=== PATIENT | male | born 1980 | race Caucasian/White ===

== ENCOUNTER 2023-11-11 10:54 | Observation (INO) | payer BC, SELFPAY ==
[2023-11-11] VITALS (43 sets, daily range): BP systolic 176–218; BP diastolic 81–131; PULSE 81–106; TEMP 36.7–36.9; O2SAT 94–100; BMI 25.8; BMI 24.8
--- NOTE | 2023-11-11 11:05 | ECG_ITS ---
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
[2023-11-11 11:20] LABS: Basophils Absolute Auto 0.1 10^3/uL (0.0-0.1); Basophils Percent Auto 0.4 % (0.2-2.0); Eosinophils Absolute Auto 0.1 10^3/uL (0.0-0.7); Eosinophils Percent Auto 0.8 % (0.9-7.0); Hematocrit 45.5 % (42.0-54.0); Hemoglobin 15.6 g/dL (14.0-18.0); Immature Granulocytes Abs Auto 0.08 10^3/uL (0.00-0.03); Immature Granulocytes Pct Auto 0.7 % (0.0-0.5); Lymphocytes Absolute Auto 2.6 10^3/uL (1.2-3.8); Lymphocytes Percent Auto 21.9 % (20.5-60.0); Mean Corpuscular HGB Conc 34.3 g/dL (29.9-35.2); Mean Corpuscular Hemoglobin 34.2 pg (25.9-34.0); Mean Corpuscular Volume 99.8 fL (80.0-94.0); Mean Platelet Volume 9.8 fL (9.5-13.5); Monocytes Percent Auto 8.1 % (1.7-12.0); Neutrophils Absolute Auto 8.2 10^3/uL (1.4-6.5); Neutrophils Percent Auto 68.1 % (43.0-75.0); Platelet Count 270 10^3/uL (150-450); Red Blood Count 4.56 10^6/uL (4.70-6.10)
[2023-11-11 11:41] LABS: Anion Gap 12.5; BUN Creatinine Ratio 10.9; Calcium 8.7 mg/dL (8.5-10.1); Carbon Dioxide 27.3 mmol/L (21.0-32.0); Chloride 100 mmol/L (98-107); Estimated GFR (African America >60 (>=60); Estimated GFR (Non-African Ame >60 (>=60); Glucose 100 mg/dL (74-106); Potassium 3.8 mmol/L (3.5-5.1); Sodium 136 mmol/L (136-145); Troponin I High Sensitivity 10.1 pg/mL (4.0-76.1)
--- NOTE | 2023-11-11 11:41 | ECG_ITS ---
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
[2023-11-11] MEDS: LABETALOL HCL 20 MG/4 ML SYRINGE 10 MG IVP ×2 (12:04→13:07)
[2023-11-11 12:37] LABS: Bilirubin Urine NEGATIVE (NEGATIVE); Blood Urine NEGATIVE (NEGATIVE); Clarity Urine CLEAR (CLEAR); Color Urine LT. YELLOW (YELLOW); Glucose Urine UA NEGATIVE (NEGATIVE); Ketones Urine NEGATIVE (NEGATIVE); Leukocyte Esterase Urine SMALL (NEGATIVE); Nitrite Urine NEGATIVE (NEGATIVE); Protein Urine NEGATIVE (NEG/TRACE); pH Urine 7.5 (5.0-9.0)
[2023-11-11 12:48] LABS: Bacteria Urine TRACE #/HPF (NONE SEEN); Cast Seen? NONE SEEN #/LPF (NONE SEEN); Crystals Seen? None Seen #/HPF (None Seen); Mucus Urine NONE SEEN (NONE SEEN); RBC Urine 0-2 #/HPF (0-2); Squamous Epithelial Cell Urine FEW #/LPF (NONE/RARE)
[2023-11-11 12:49] LABS: Urine Culture Indicated YES
[2023-11-11 13:37] LABS: Troponin I High Sensitivity 12.8 pg/mL (4.0-76.1)
--- NOTE | 2023-11-11 15:06 | ED_ITS ---
HPI HPI - General Adult General Chief complaint: Recheck/Abnormal Lab/Rx Stated complaint: HIGH BLOOD PRESSURE, WEAK, FAINT Time Seen by Provider: 11/11/23 11:04 Source: patient Mode of arrival: walk-in Limitations: no limitations History of Present Illness HPI narrative: 42-year-old male to the emergency department chief complaint of elevated blood pressure. Patient reports that he was at work today at the [employer] and experienced an episode of diaphoresis, dizziness, feeling generally unwell. He had to sit down. He looked unwell and a nurse there took his blood pressure and found to be in the 220s/120s. He reports that he had mild hypertension in the past that was treated with exercise and diet. Has never been on medications. He did not have any chest pain but did have some mild shortness of breath. He did not have any vision changes, numbness, weakness, tingling. Related Data Home Medications ?Medication ?Instructions ?Recorded ?Confirmed No Known Home Medications 11/11/23 11/11/23 Allergies Allergy/AdvReac Type Severity Reaction Status Date / Time No Known Drug Allergies Allergy Verified 11/11/23 10:59 Opioid HPI Opioid Management Most Recent Opioid Data: No Data to Display Review of Systems ROS Status of ROS 10 or more systems reviewed and unremark able except as noted in history and below Exam Narrative Exam Narrative: VITALS: I have reviewed the triage vital signs. GENERAL: Well developed, well appearing adult in no acute distress. NEURO: Alert and oriented. Moves all extremities. Face is symmetric and expressive. EYES: PERRL. No scleral icterus or conjunctival injection. No discharge. HENT: Normocephalic, atraumatic. Hearing is grossly intact. Nares grossly patent and without discharge. Mucous membranes moist. NECK: No JVD. Patient moves neck without restriction. CARDIO: Rhythm regular. Normal rate. No murmur, rub, or gallop. Pulses equal bilaterally in the upper and lower extremity. No lower extremity edema. PULM: Lungs clear to auscultation in all workman. No wheezes, rales, or rhonchi. No conversational dyspnea. No splinting, stridor, or accessory muscle use. GI/: Abdomen is soft and non-tender. Normoactive bowel sounds. EXTREMITIES: Symmetric muscle bulk. No joint swelling. No clubbing, cyanosis, or deformity. SKIN: Warm and dry. Normal turgor. No rash or lesions appreciated. PSYCH: Mood, affect, and interaction is appropriate to the setting. Constitutional Vital Signs, click to edit/add: Last Vital Signs Temp 98.1 F 11/11/23 11:00 Pulse 87 11/11/23 14:40 Resp 12 11/11/23 14:40 BP 176/81 H 11/11/23 14:30 Pulse Ox 100 11/11/23 11:01 Course Vital Signs Vital signs: Vital Signs Temperature 98.1 F 11/11/23 11:00 Pulse Rate 98 H 11/11/23 11:00 Respiratory Rate 18 11/11/23 11:00 Blood Pressure 202/119 H 11/11/23 11:00 Pulse Oximetry 100 11/11/23 11:00 Temperature 98.1 F 11/11/23 11:00 Pulse Rate 87 11/11/23 14:40 Respiratory Rate 12 11/11/23 14:40 Blood Pressure 176/81 H 11/11/23 14:30 Pulse Oximetry 100 11/11/23 11:01 Medical Decision Making [facility] Narrative Medical decision making narrative: 42-year-old male to the emergency department with chief complaint of episode of near syncope and hypertension. Severe hypertension, otherwise stable vitals. The patient is afebrile. Cardiac workup is initiated. EKG #1: Normal sinus rhythm at a rate of 97. Nonspecific ST changes including depression in the inferior lateral leads. No STEMI. Normal QTc. EKG #2: Normal sinus rhythm at a rate of 97. Nonspecific ST changes. No dynamic changes. No STEMI. Normal QTc. CBC and chemistry without major abnormality. His troponin is within normal limits. He remains severely hypertensive. He was given a IV dose of labetalol. He was observed for 20 minutes without major response. I did a dose of IV labetalol was given. His blood pressure did decrease to our initial target of 190s. Given the EKG changes, symptoms as above, persistent hypertension will admit the patient to the hospital for hypertensive emergency. Case discussed with hospitalist who agrees with this plan Medical Records Medical records reviewed: Yes I reviewed the patient's medical records Lab Data Lab results reviewed: Yes I reviewed the patient's lab results Labs: Lab Results 11/11/23 11/11/23 11/11/23 Range/Units 11:05 12:10 13:07 WBC 12.0 H (4.0-11.0) 10^3/uL RBC 4.56 L (4.70-6.10) 10^6/uL Hgb 15.6 (14.0-18.0) g/dL Hct 45.5 (42.0-54.0) % MCV 99.8 H (80.0-94.0) fL MCH 34.2 H (25.9-34.0) pg MCHC 34.3 (29.9-35.2) g/dL RDW 13.0 (11.0-15.0) % Plt Count 270 (150-450) 10^3/uL MPV 9.8 (9.5-13.5) fL Neut % (Auto) 68.1 (43.0-75.0) % Lymph % (Auto) 21.9 (20.5-60.0) % [place] % (Auto) 8.1 (1.7-12.0) % Eos % (Auto) 0.8 L (0.9-7.0) % Baso % (Auto) 0.4 (0.2-2.0) % Neut # (Auto) 8.2 H (1.4-6.5) 10^3/uL Lymph # (Auto) 2.6 (1.2-3.8) 10^3/uL [place] # (Auto) 1.0 H (0.3-0.8) 10^3/uL Eos # (Auto) 0.1 (0.0-0.7) 10^3/uL Baso # (Auto) 0.1 (0.0-0.1) 10^3/uL Abs Immat Gran (auto) 0.08 H (0.00-0.03) 10^3/uL Imm/Tot Granulo (auto) 0.7 H (0.0-0.5) % Sodium 136 (136-145) mmol/L Potassium 3.8 (3.5-5.1) mmol/L Chloride 100 (98-107) mmol/L Carbon Dioxide 27.3 (21.0-32.0) mmol/L Anion Gap 12.5 BUN 7.0 (7.0-18.0) mg/dL Creatinine 0.64 L (0.70-1.30) mg/dL Est GFR ( Amer) >60 (>=60) Est GFR (Non-Af Amer) >60 (>=60) BUN/Creatinine Ratio 10.9 Glucose 100 (74-106) mg/dL Calcium 8.7 (8.5-10.1) mg/dL Troponin I High Sens 10.1 12.8 (4.0-76.1) pg/mL Urine Color Lt. yellow (YELLOW) Urine Clarity Clear (CLEAR) Urine pH 7.5 (5.0-9.0) Ur Specific [place] 1.010 (1.005-1.025) Urine Protein Negative (NEG/TRACE) mg/dL Urine Glucose (UA) Negative (NEGATIVE) mg/dL Urine Ketones Negative (NEGATIVE) mg/dL Urine Occult Blood Negative (NEGATIVE) Urine Nitrite Negative (NEGATIVE) Urine Bilirubin Negative (NEGATIVE) Urine Urobilinogen 1.0 (0.2-1.0) EU/dL Ur Leukocyte Esterase Small A (NEGATIVE) Urine RBC 0-2 (0-2) #/HPF Urine WBC 10-20 A (NONE SEEN) #/HPF Ur Squamous Epith Cells Few A (NONE/RARE) #/LPF Urine Crystals None seen (None Seen) #/HPF Urine Bacteria Trace A (NONE SEEN) #/HPF Urine Casts None seen (NONE SEEN) #/LPF Urine Mucus None seen (NONE SEEN) Ur Culture Indicated? Yes ECG Data Attestation: I personally reviewed and interpreted this ECG as follows: (See MDM for interpretation) Critical Care Time Critical Care Time Critical Care Time: Yes Total Critical Care Time: 32 Attestation: Critical Care Procedure Note Authorized and Performed by: Emerson Peña DO Total critical care time: 32 min Due to a high probability of clinically significant, life threatening deterioration, the patient required my highest level of preparedness to in the [facility] emergently and I personally spent this critical care time directly and personally managing the patient. This critical care time included obtaining a history; examining the patient; pulse oximetry; ordering and review of studies; arranging urgent treatment with development of a management plan; evaluation of patient's response to treatment; frequent reassessment; and, discussions with other providers. This critical care time was performed to assess and manage the high probability of imminent, life-threatening deterioration that could result in multi-organ failure. It was exclusive of separately billable procedures and treating other patients and teaching time. Please see MDM section and the rest of the note for further information on patient assessment and treatment. Discharge Plan Discharge Chief Complaint: Recheck/Abnormal Lab/Rx Clinical Impression: Hypertensive emergency Patient Disposition: Admitted as Observation Time of Disposition Decision: 15:12 Condition: Good Prescriptions / Home Meds: No Action No Known Home Medications Print Language: Ghanaian Referrals: Physician,Non-Staff, MD [Primary Care Provider] - 1 week
--- NOTE | 2023-11-11 15:31 | CT_ITS ---
[address] [address] Patient Name: VERONICA NEWMAN MRN: [id number] date: 1980 Sex: M Assigned Patient Location: [place] Current Patient Location: [place] Accession/Order Number: [id number] Exam Date: 11/11/2023 15:55 Report Date: 11/11/2023 16:28 At the request of: SHAIKH PEACE Procedure: CT head/brain wo con CT HEAD WITHOUT CONTRAST. INDICATION: Headache. COMPARISON: None available for comparison TECHNIQUE: Axial CT head images from the skull base to the vertex without IV contrast were acquired. Coronal and sagittal reformats were also obtained. FINDINGS: EXTRA-AXIAL SPACE: Age-appropriate ventricles. No acute extra-axial collection. No extra-axial mass. No midline shift. CEREBRUM: No focal abnormality. No CT evidence of acute large territorial cortical infarct, hemorrhage or mass effect. CEREBELLUM: No focal abnormality. No CT evidence of acute infarct, hemorrhage or mass effect. BRAINSTEM: No focal abnormality. No CT evidence of acute infarct, hemorrhage or mass effect. EXTRACRANIAL STRUCTURES. The paranasal sinuses are clear. Mastoid air cells are clear. Orbits are unremarkable. No discrete pituitary mass. Intact calvarium. CT/CT head/brain wo con IMPRESSION: No acute intracranial abnormality. Electronically authenticated by: ISA KHAN Date: 11/11/2023 16:28
--- NOTE | 2023-11-11 15:31 | PM.HP ---
HPI H&P: HPI History of Present Illness Chief complaint: HIGH BLOOD PRESSURE, WEAK, HYPERTENSIVE EMERGENCY Narrative: 42-year-old male with no significant past medical history was at work when he started to experience lightheadedness, bitemporal headache, generalized weakness was told by his coworkers that he did not look right. He also reports mild shortness of breath and diaphoresis along with his other symptoms. 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 Patient was advised to go to ER for further evaluation. He was driven by his son who was also present bedside. Upon arrival, patient's blood pressure was as high as 200/120 for which he was given IV labetalol with temporary reduction in his blood pressure. At the time of my evaluation, he had no active complaints to offer and was asymptomatic and denied headache, nausea, vomiting, visual changes, shortness of breath, chest pain, heart palpitations. Patient has not seen a physician for over 3 to 4 years. He was previously told that he has borderline high blood pressure. He has never been prescribed anything for high blood pressure. He admits to high levels of stress at work lately. Of note, he was also noted to have ST?T wave changes on EKG denies any chest pain, shortness of breath, palpitation and his initial cardiac enzymes were negative. Patient will need to be admitted for observation for hypertensive emergency for close hemodynamic monitoring while he is being treated for elevated blood pressure. Opioid HPI Opioid Management Most Recent Pain and Opioid Data: Last ORT Total Score 8 11/11/23 15:36 Last ORT Risk Category High Risk 11/11/23 15:36 Review of Systems ROS Status of ROS 10 or more systems reviewed and unremarkable except as noted in history and below [facility] Family History Mother Family history of cancer Family history of hypertension Father Family history of hypertension Grandfather Family history of myocardial infarction Social History (Updated 11/11/23 @ 15:37 by Shaikh Charmaine MD) Within the past year, how often did you have a drink containing alcohol: 2-3 times a week Within the past year, how many standard drinks containing alcohol did you have on a typical day: 3 or 4 Within the past year, how often did you have six or more drinks on one occasion: monthly Total score: 4 Score interpretation: A score of 4 or more indicates drinking is likely to affect patient's safety. 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 Little interest or pleasure in doing things: not at all Feeling down, depressed, or hopeless: not at all Feel stressed/tense/nervous/anxious/difficulty sleeping: not at all Do you think of yourself as: straight/heterosexual Gender Identity: male Meds Home Medications and Allergies Home Medications ?Medication ?Instructions ?Recorded ?Confirmed ?Type No Known Home Medications 11/11/23 11/11/23 History Allergies Allergy/AdvReac Type Severity Reaction Status Date / Time No Known Drug Allergies Allergy Verified 11/11/23 10:59 Exam Constitutional Vital Signs, click to edit/add: Last Vital Signs Temp 98.1 F 11/11/23 11:00 Pulse 81 11/11/23 15:10 Resp 15 11/11/23 15:10 BP 176/81 H 11/11/23 14:30 Pulse Ox 100 11/11/23 11:01 Documenting provider has reviewed patient's vital signs: yes Common normals: no apparent distress and oriented x3 General appearance: cooperative HENKS Common normals: normocephalic and head/scalp atraumatic Head and scalp: normocephalic and atraumatic Eye Common normals: conjunctivae normal and no scleral icterus Conjunctiva: conjunctiva(e) normal Respiratory Common normals: normal respiratory effort and clear to auscultation bilaterally Effort & inspection: able to speak in complete sentences Auscultation: clear to auscultation bilaterally Cardio Common normals: regular rate, S1 normal heart sound and S2 normal heart sound Rate: regular rate Heart sounds: S1 normal and S2 normal GI Common normals: Normal to inspection, nondistended, normoactive bowel sounds present, soft to palpation, non-tender and no hepatosplenomegaly Palpation: soft and no hepatosplenomegaly Extremity Common normals: no clubbing, cyanosis or edema Neuro Common normals: oriented x3, moves all extremities and no focal motor deficits Psych Common normals: mental status grossly normal, denies hallucinations, denies homicidal ideation and denies suicidal ideation Results Labs Labs: Short CBC 11/11/23 Range/Units 11:05 WBC 12.0 H (4.0-11.0) 10^3/uL Hgb 15.6 (14.0-18.0) g/dL Hct 45.5 (42.0-54.0) % Plt Count 270 (150-450) 10^3/uL BMP 11/11/23 11:05 Sodium 136 Potassium 3.8 Chloride 100 Carbon Dioxide 27.3 BUN 7.0 Creatinine 0.64 L Glucose 100 Calcium 8.7 Urine 11/11/23 Range/Units 12:10 Urine Color Lt. yellow (YELLOW) Urine Clarity Clear (CLEAR) Urine pH 7.5 (5.0-9.0) Ur Specific [place] 1.010 (1.005-1.025) Urine Protein Negative (NEG/TRACE) mg/dL Urine Glucose (UA) Negative (NEGATIVE) mg/dL Assessment and Plan Assessment and Plan (1) Hypertensive emergency: Assessment and Plan: Patient presents with hypertensive emergency with blood pressure as high as 210/120. Required IV labetalol with temporary improvement in his blood pressure. I will start the patient on oral Norvasc 10 mg and hydrochlorothiazide 25 mg once daily. I will also order IV hydralazine as needed. Target blood pressure is 160/100. He will need gradual lowering of his blood pressure and close hemodynamic monitoring.. CT head ordered to rule out acute intracranial pathology as he was complaining of headache initially when his symptoms started. (2) Abnormal EKG: Assessment and Plan: ST-T wave changes on EKG likely because of uncontrolled hypertension. Will repeat EKG in the morning once his blood pressure is improved. Trend troponins. Will need workup for ischemic heart disease as outpatient (3) Abnormal finding on urinalysis: Assessment and Plan: Abnormal UA. No urinary symptoms. Treat empirically with IV Rocephin (4) Leukocytosis: Assessment and Plan: Likely reactive and/or secondary to UTI. On IV Rocephin. Monitor for now. Qualifiers: Leukocytosis type: unspecified Qualified Code(s): D72.829 - Elevated white blood cell count, unspecified
[2023-11-11] MEDS: ENOXAPARIN SODIUM 40 MG/0.4 ML SYRINGE SUBQ (16:08)
[2023-11-11] MEDS: HYDROCHLOROTHIAZIDE 25 MG TABLET PO (16:08)
[2023-11-11] MEDS: ASPIRIN 81 MG TAB.CHEW PO (16:08)
[2023-11-11] MEDS: AMLODIPINE BESYLATE 5 MG TABLET 10 MG PO (16:09)
[2023-11-11] MEDS: CEFTRIAXONE 1,000 MG in 0.9 % SODIUM CHLORIDE 50 ML 100 MG IV (16:53)
[2023-11-11] MEDS: HYDRALAZINE HCL 20 MG/ML VIAL 10 MG IVP (17:40)
[2023-11-11 19:27] LABS: Troponin I High Sensitivity 13.5 pg/mL (4.0-76.1)
[2023-11-11] MEDS: OXYCODONE HCL 5 MG TABLET PO (19:37)
[2023-11-11] MEDS: ALPRAZOLAM 0.5 MG TABLET PO (19:38)
[2023-11-11] MEDS: NICOTINE 21 MG PATCH.TD24 TD (20:47)
[2023-11-12] VITALS (13 sets, daily range): BP systolic 171–189; BP diastolic 93–121; PULSE 81–108; TEMP 36.4–36.6; O2SAT 97–98
[2023-11-12] MEDS: LORAZEPAM 1 MG TABLET PO ×3 (00:26→06:23)
[2023-11-12] MEDS: HYDRALAZINE HCL 20 MG/ML VIAL 10 MG IVP ×2 (00:27→06:23)
[2023-11-12] MEDS: OXYCODONE HCL 5 MG TABLET PO (04:10)
--- NOTE | 2023-11-12 06:00 | ECG_ITS ---
[facility] Test Date: 2023-11-12 Pat Name: VERONICA NEWMAN Department: Room: 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
[2023-11-12 06:45] LABS: Basophils Absolute Auto 0.1 10^3/uL (0.0-0.1); Basophils Percent Auto 0.5 % (0.2-2.0); Eosinophils Absolute Auto 0.3 10^3/uL (0.0-0.7); Eosinophils Percent Auto 2.2 % (0.9-7.0); Hematocrit 47.7 % (42.0-54.0); Hemoglobin 16.2 g/dL (14.0-18.0); Immature Granulocytes Abs Auto 0.06 10^3/uL (0.00-0.03); Immature Granulocytes Pct Auto 0.5 % (0.0-0.5); Lymphocytes Absolute Auto 2.8 10^3/uL (1.2-3.8); Lymphocytes Percent Auto 21.2 % (20.5-60.0); Mean Corpuscular Volume 100.2 fL (80.0-94.0); Mean Platelet Volume 10.2 fL (9.5-13.5); Monocytes Absolute Auto 1.2 10^3/uL (0.3-0.8); Monocytes Percent Auto 9.3 % (1.7-12.0); Neutrophils Absolute Auto 8.8 10^3/uL (1.4-6.5); Neutrophils Percent Auto 66.3 % (43.0-75.0); Platelet Count 259 10^3/uL (150-450); Red Blood Count 4.76 10^6/uL (4.70-6.10); Red Cell Distribution Width 12.9 % (11.0-15.0); White Blood Count 13.2 10^3/uL (4.0-11.0)
[2023-11-12 06:48] LABS: Cholesterol 186 mg/dL (<=200); HDL Cholesterol 46 mg/dL (40-60); LDL Cholesterol Calculated 119.6 mg/dL; Triglycerides 102 mg/dL (<=150); VLDL CHOLESTEROL 20.4 mg/dL
[2023-11-12 06:51] LABS: Alanine Aminotransferase 30 U/L (16-63); Albumin Globulin Ratio 1.2; Albumin Level 3.3 g/dL (3.4-5.0); Alkaline Phosphatase 78 U/L (46-116); Anion Gap 15.7; Aspartate Amino Transferase 16 U/L (15-37); BUN Creatinine Ratio 11.1; Bilirubin Total 0.7 mg/dL (0.2-1.0); Calcium 8.9 mg/dL (8.5-10.1); Carbon Dioxide 25.6 mmol/L (21.0-32.0); Chloride 101 mmol/L (98-107); Estimated GFR (African America >60 (>=60); Estimated GFR (Non-African Ame >60 (>=60); Globulin 2.8 g/dL; Glucose 107 mg/dL (74-106); Potassium 3.3 mmol/L (3.5-5.1); Sodium 139 mmol/L (136-145); Total Protein 6.1 g/dL (6.4-8.2)
[2023-11-12 07:36] LABS: Estimated Average Glucose 97 mg/dL
[2023-11-12] MEDS: ASPIRIN 81 MG TAB.CHEW PO (08:16)
[2023-11-12] MEDS: HYDROCHLOROTHIAZIDE 25 MG TABLET PO (08:17)
[2023-11-12] MEDS: POTASSIUM CHLORIDE 10 MEQ ER TABLET 40 MEQ PO (08:17)
[2023-11-12] MEDS: LOSARTAN POTASSIUM 50 MG TABLET 100 MG PO (08:17)
[2023-11-12] MEDS: AMLODIPINE BESYLATE 5 MG TABLET 10 MG PO (08:17)
--- NOTE | 2023-11-12 11:19 | P.DS_ITS ---
DS: Providers Provider Date of admission: 11/11/23 15:26 Primary care physician: Non-Staff Physician, Admitting clinician: Shaikh Charmaine Attending physician on admission: Shaikh Charmaine Attending physician on discharge: Shaikh Charmaine Discharging clinician: Shaikh Charmaine Anticipated date of discharge: 11/12/23 DS: Diagnosis Discharge Diagnosis (1) Hypertensive emergency: Assessment and plan: Blood pressure is better with addition of oral antihypertensives. It is still above goal and will require close monitoring as outpatient. Patient will be discharged on oral Norvasc, losartan and hydrochlorothiazide. He will need outpatient BMP in 1 week and follow-up with PCP with home blood pressure log so that his blood pressure medications can be adjusted accordingly (2) Abnormal EKG: Assessment and plan: Nonspecific ST-T wave changes on initial EKG when he presented with hypertensive emergency. More or less resolved on repeat EKG in the morning. He denies chest pain, shortness of breath. He has negative cardiac enzymes. Will defer workup for underlying coronary artery disease to his PCP (3) Abnormal finding on urinalysis: Assessment and plan: No urinary symptoms but has abnormal UA. Will treat for UTI. Discharged on orals Ceftin (4) Leukocytosis: Assessment and plan: Unchanged. Likely reactive. Will discharge on oral Ceftin Qualifiers: Leukocytosis type: unspecified Qualified Code(s): D72.829 - Elevated white blood cell count, unspecified DS: Summary Hospital Course Hospital Course: 42-year-old male presented to ER with uncontrolled hypertension. His systolic blood pressure on arrival was over 200. He also complained of shortness of breath, headache and diaphoresis. Patient was admitted for hypertensive emergency. He was treated with IV hydralazine as needed and started on oral medications overnight. Initially he was started on oral Norvasc and hydrochlorothiazide. I added losartan as his blood pressure was still above goal. He is asymptomatic now and has no active complaints to offer. He had no acute intracranial pathology on CT head. He had nonspecific ST-T wave changes on EKG on arrival. Those changes have improved. He also had negative cardiac enzymes. While patient's blood pressure is still above goal but it is significantly better and reasonably controlled. He will need outpatient follow- up with PCP in 1 week. He was instructed to check his blood pressure daily at h ome and maintain home blood pressure log so that his PCP can adjust his medications as outpatient. While he did not have any urinary symptoms, his UA was consistent with UTI for which she was treated with Rocephin. I will discharge him on oral antibiotic for empirical treatment for UTI. Status at Discharge Functional status at discharge: independent ambulation Overall status at discharge: patient is back to baseline Time Spent with Patient Time attestation: Total time spent providing and/or coordinating discharge services: Time spent: greater than 30 minutes Exam Constitutional Vital Signs, click to edit/add: Last Vital Signs Temp 97.8 F 11/12/23 07:58 Pulse 104 H 11/12/23 09:50 Resp 18 11/12/23 07:58 BP 171/93 H 11/12/23 09:25 Pulse Ox 97 11/12/23 07:58 O2 Del Method Room Air 11/12/23 07:58 Documenting provider has reviewed patient's vital signs: yes Common normals: no apparent distress and oriented x3 General appearance: cooperative Eye Common normals: conjunctivae normal and no scleral icterus Conjunctiva: conjunctiva(e) normal Respiratory Common normals: normal respiratory effort and clear to auscultation bilaterally Effort & inspection: able to speak in complete sentences Auscultation: clear to auscultation bilaterally Cardio Common normals: regular rate, S1 normal heart sound and S2 normal heart sound Rate: regular rate Heart sounds: S1 normal and S2 normal GI Common normals: Normal to inspection, nondistended, normoactive bowel sounds present, soft to palpation, non-tender and no hepatosplenomegaly Palpation: soft and no hepatosplenomegaly Extremity Common normals: no clubbing, cyanosis or edema Neuro Common normals: oriented x3, moves all extremities and no focal motor deficits Psych Common normals: mental status grossly normal, denies hallucinations, denies homicidal ideation and denies suicidal ideation DS: Data Data Completed and Pending Labs on day of discharge: Labs from last 24 hours 11/12/23 11/11/23 11/11/23 05:41 18:57 16:06 WBC 13.2 H RBC 4.76 Hgb 16.2 Hct 47.7 MCV 100.2 H MCH 34.0 MCHC 34.0 RDW 12.9 Plt Count 259 MPV 10.2 Neut % (Auto) 66.3 Lymph % (Auto) 21.2 Oliver % (Auto) 9.3 Eos % (Auto) 2.2 Baso % (Auto) 0.5 Neut # (Auto) 8.8 H Lymph # (Auto) 2.8 Oliver # (Auto) 1.2 H Eos # (Auto) 0.3 Baso # (Auto) 0.1 Abs Immat Gran (auto) 0.06 H Imm/Tot Granulo (auto) 0.5 Sodium 139 Potassium 3.3 L Chloride 101 Carbon Dioxide 25.6 Anion Gap 15.7 BUN 7.0 Creatinine 0.63 L Est GFR ( Amer) >60 Est GFR (Non-Af Amer) >60 BUN/Creatinine Ratio 11.1 Glucose 107 H Estimat Average Glucose 97 Hemoglobin A1c 5.0 Calcium 8.9 Total Bilirubin 0.7 AST 16 ALT 30 Alkaline Phosphatase 78 Troponin I High Sens 13.5 13.0 Total Protein 6.1 L Albumin 3.3 L Globulin 2.8 Albumin/Globulin Ratio 1.2 Triglycerides 102 Cholesterol 186 LDL Cholesterol, Calc 119.6 VLDL Cholesterol 20.4 HDL Cholesterol 46 Cholesterol/HDL Ratio 4.0 Urine Color Urine Clarity Urine pH Ur Specific Wheelwright Urine Protein Urine Glucose (UA) Urine Ketones Urine Occult Blood Urine Nitrite Urine Bilirubin Urine Urobilinogen Ur Leukocyte Esterase Urine RBC Urine WBC Ur Squamous Epith Cells Urine Crystals Urine Bacteria Urine Casts Urine Mucus Ur Culture Indicated? 11/11/23 11/11/23 11/11/23 13:07 12:10 11:05 WBC 12.0 H RBC 4.56 L Hgb 15.6 Hct 45.5 MCV 99.8 H MCH 34.2 H MCHC 34.3 RDW 13.0 Plt Count 270 MPV 9.8 Neut % (Auto) 68.1 Lymph % (Auto) 21.9 Oliver % (Auto) 8.1 Eos % (Auto) 0.8 L Baso % (Auto) 0.4 Neut # (Auto) 8.2 H Lymph # (Auto) 2.6 Oliver # (Auto) 1.0 H Eos # (Auto) 0.1 Baso # (Auto) 0.1 Abs Immat Gran (auto) 0.08 H Imm/Tot Granulo (auto) 0.7 H Sodium 136 Potassium 3.8 Chloride 100 Carbon Dioxide 27.3 Anion Gap 12.5 BUN 7.0 Creatinine 0.64 L Est GFR ( Amer) >60 Est GFR (Non-Af Amer) >60 BUN/Creatinine Ratio 10.9 Glucose 100 Estimat Average Glucose Hemoglobin A1c Calcium 8.7 Total Bilirubin AST ALT Alkaline Phosphatase Troponin I High Sens 12.8 10.1 Total Protein Albumin Globulin Albumin/Globulin Ratio Triglycerides Cholesterol LDL Cholesterol, Calc VLDL Cholesterol HDL Cholesterol Cholesterol/HDL Ratio Urine Color Lt. yellow Urine Clarity Clear Urine pH 7.5 Ur Specific Wheelwright 1.010 Urine Protein Negative Urine Glucose (UA) Negative Urine Ketones Negative Urine Occult Blood Negative Urine Nitrite Negative Urine Bilirubin Negative Urine Urobilinogen 1.0 Ur Leukocyte Esterase Small A Urine RBC 0-2 Urine WBC 10-20 A Ur Squamous Epith Cells Few A Urine Crystals None seen Urine Bacteria Trace A Urine Casts None seen Urine Mucus None seen Ur Culture Indicated? Yes Discharge Plan Discharge Disposition: Home, Self-Care Condition: Good Discharge Medications: New amlodipine [Norvasc] 10 mg tablet 10 mg PO DAILY Qty: 30 0RF losartan-hydrochlorothiazide 100-25 mg tablet 1 tab PO DAILY Qty: 30 0RF cefuroxime axetil 500 mg tablet 500 mg PO BID 7 Days Qty: 14 0RF Activity: increase activity as tolerated Diet: advance to your usual diet Print Language: Faroese Forms: Portal Instructions Follow Up Appointments: @ 4pm with Jennifer Adams NP [address] [facility] [phone]
--- NOTE | 2023-11-12 11:37 | CM.NOTE ---
Rounds made with Dr. Montano, discussed with pt discharge planning. Pt will f/u with Conchita Dia. Dr. Montano ordered repeat lab work to be done prior to seeing Conchita Dia for f/u. Pt was given outpatient lab requisition for f/u blood work. Pt verbalizes understanding. Pt states he has BP cuff at home and will be able to check his BP twice daily and record for f/u appt.
--- NOTE | 2023-11-13 15:23 | CM.DCFOLLOWU ---
Person spoke with: patient How are you feeling? better, still not great, but better How is your pain? none Did you understand your discharge instructions? yes Do you have any questions about your discharge instructions? no Were you given any prescriptions at discharge? yes Were you able to get your prescriptions filled? yes Do you understand how to take your medications as ordered? yes Do you have any questions about your follow up appointment and do you plan to keep your follow up appointment? no questions, reviewed follow up apt. Is there anything else that you would like to discuss? no Questions/Comments/Concerns/Other: none
== END 2023-11-12 12:16 | disposition home or self-care (01) ==
LOC: ER 15:12 → MS 15:29
PROVIDERS: Admitting Provider Internal Medicine; Emergency Provider Student in an Organized Health Care Education/Training Program; Visit Provider Internal Medicine
DX: I16.1 Hypertensive emergency (principal); R94.31 Abnormal electrocardiogram [ECG] [EKG]; N39.0 Urinary tract infection, site not specified; D72.829 Elevated white blood cell count, unspecified
CPT/HCPCS: 36415; 70450; 80048; 80053; 80061; 81001; 83036; 84484; 85025; 87086; 93005; 94761; 96365; 96372; 96375; 96376; 99285; G0378; J0360; J0696; J1290; J1650

== ENCOUNTER 2023-11-23 08:07 | Outpatient (OUT) | payer BC, SELFPAY ==
[2023-11-23 08:36] LABS: Basophils Absolute Auto 0.1 10^3/uL (0.0-0.1); Basophils Percent Auto 0.6 % (0.2-2.0); Eosinophils Absolute Auto 0.3 10^3/uL (0.0-0.7); Eosinophils Percent Auto 2.2 % (0.9-7.0); Hematocrit 45.9 % (42.0-54.0); Hemoglobin 16.1 g/dL (14.0-18.0); Immature Granulocytes Abs Auto 0.09 10^3/uL (0.00-0.03); Immature Granulocytes Pct Auto 0.7 % (0.0-0.5); Lymphocytes Absolute Auto 2.9 10^3/uL (1.2-3.8); Lymphocytes Percent Auto 22.6 % (20.5-60.0); Mean Corpuscular HGB Conc 35.1 g/dL (29.9-35.2); Mean Corpuscular Hemoglobin 34.4 pg (25.9-34.0); Mean Corpuscular Volume 98.1 fL (80.0-94.0); Mean Platelet Volume 9.8 fL (9.5-13.5); Monocytes Absolute Auto 1.2 10^3/uL (0.3-0.8); Monocytes Percent Auto 9.2 % (1.7-12.0); Neutrophils Absolute Auto 8.4 10^3/uL (1.4-6.5); Neutrophils Percent Auto 64.7 % (43.0-75.0); Platelet Count 334 10^3/uL (150-450); Red Blood Count 4.68 10^6/uL (4.70-6.10)
[2023-11-23 08:40] LABS: Bilirubin Urine NEGATIVE (NEGATIVE); Blood Urine NEGATIVE (NEGATIVE); Clarity Urine CLEAR (CLEAR); Color Urine YELLOW (YELLOW); Glucose Urine UA NEGATIVE (NEGATIVE); Ketones Urine NEGATIVE (NEGATIVE); Leukocyte Esterase Urine NEGATIVE (NEGATIVE); Nitrite Urine NEGATIVE (NEGATIVE); Protein Urine NEGATIVE (NEG/TRACE); Specific Gravity Urine 1.015 (1.005-1.025); pH Urine 7.5 (5.0-9.0)
[2023-11-23 08:41] LABS: Alanine Aminotransferase 39 U/L (16-63); Albumin Globulin Ratio 1.3; Albumin Level 3.7 g/dL (3.4-5.0); Alkaline Phosphatase 89 U/L (46-116); Anion Gap 11.2; Aspartate Amino Transferase 17 U/L (15-37); BUN Creatinine Ratio 15.2; Calcium 9.1 mg/dL (8.5-10.1); Carbon Dioxide 27.3 mmol/L (21.0-32.0); Chloride 101 mmol/L (98-107); Chol HDL Ratio 4.5; Cholesterol 175 mg/dL (<=200); Estimated GFR (African America >60 (>=60); Estimated GFR (Non-African Ame >60 (>=60); Globulin 2.8 g/dL; Glucose 115 mg/dL (74-106); HDL Cholesterol 39 mg/dL (40-60); Potassium 3.5 mmol/L (3.5-5.1); Sodium 136 mmol/L (136-145); Total Protein 6.5 g/dL (6.4-8.2); Triglycerides 168 mg/dL (<=150); VLDL CHOLESTEROL 33.6 mg/dL
[2023-11-23 09:35] LABS: Bacteria Urine NONE SEEN #/HPF (NONE SEEN); Cast Seen? NONE SEEN #/LPF (NONE SEEN); Crystals Seen? None Seen #/HPF (None Seen); Mucus Urine NONE SEEN (NONE SEEN); RBC Urine 0-2 #/HPF (0-2); Squamous Epithelial Cell Urine RARE #/LPF (NONE/RARE); WBC Urine 0-2 #/HPF (NONE SEEN)
== END 2023-11-23 08:08 | disposition home or self-care (01) ==
LOC: LAB 08:08
PROVIDERS: PCP Nurse Practitioner Family; Visit Provider Nurse Practitioner Family
DX: I10 Essential (primary) hypertension (principal)
CPT/HCPCS: 36415; 80053; 80061; 81001; 85025

== ENCOUNTER 2023-12-28 07:09 | Outpatient (OUT) | payer BC, SELFPAY ==
[2023-12-28 07:37] LABS: Basophils Percent Auto 0.4 % (0.2-2.0); Eosinophils Absolute Auto 0.2 10^3/uL (0.0-0.7); Eosinophils Percent Auto 2.2 % (0.9-7.0); Hematocrit 46.1 % (42.0-54.0); Hemoglobin 16.2 g/dL (14.0-18.0); Immature Granulocytes Abs Auto 0.04 10^3/uL (0.00-0.03); Immature Granulocytes Pct Auto 0.4 % (0.0-0.5); Lymphocytes Absolute Auto 2.8 10^3/uL (1.2-3.8); Mean Corpuscular HGB Conc 35.1 g/dL (29.9-35.2); Mean Corpuscular Hemoglobin 34.8 pg (25.9-34.0); Mean Corpuscular Volume 99.1 fL (80.0-94.0); Mean Platelet Volume 9.2 fL (9.5-13.5); Monocytes Absolute Auto 0.8 10^3/uL (0.3-0.8); Monocytes Percent Auto 8.4 % (1.7-12.0); Neutrophils Absolute Auto 5.2 10^3/uL (1.4-6.5); Neutrophils Percent Auto 57.6 % (43.0-75.0); Platelet Count 294 10^3/uL (150-450); Red Blood Count 4.65 10^6/uL (4.70-6.10); Red Cell Distribution Width 12.4 % (11.0-15.0)
== END 2023-12-28 07:10 | disposition home or self-care (01) ==
PROVIDERS: PCP Nurse Practitioner Family; Visit Provider Nurse Practitioner Family
DX: R79.9 Abnormal finding of blood chemistry, unspecified (principal)
CPT/HCPCS: 36415; 85025

== ENCOUNTER 2025-03-16 14:34 | Outpatient (OUT) | payer BC, SELFPAY ==
--- OUTSIDE RECORDS SUMMARY | 2025-03-16 14:39 | XMS_ITS | CCD ---
Author Organization [facility] Informat ion Partnership [employer] WORK[employer] [facility] Care Team Providers Care Refrigerator Crater Name Role Phone Gunnar FULTON Attending Unavailable DARLENE HERNANDEZ Referring Unavailable Encounters Encounter DateEncounter TypeCare ProviderFacilityStart: [id number] Gunnar FULTONFacility:[facility]: [id number] NILL [facility] DatePayer CategoryPayerPolicy [id number] [id number] Summary Purpose Family History No Family History Records Found Advance Directives No Advanced Directives Records Found Additional Source Comments (unrecognized sect ion and content) No Status Records Found INFORMATION SOURCE (unrecogn ized section and content) DATE CREATED AUTHOR 02/10/2025 [facility] FOR RECORDS PERTAINING TO PATIENTS WHO ARE OR HAVE BEEN ENROLLED IN A CHEMICAL DEPENDENCY/SUBSTANCEABUSE PROGRAM, SOME INFORMATION MAY BE OMITTED. This clinical summary was aggregated from multiple sources. Caution should be exercised in using it in the provision of clinical care. This summary normalizes information from multiple sources, and as a consequence, information in this document may materially change the coding, format and clinical context of patient data. In addition, data may be omitted in some cases. CLINICAL DECISIONS SHOULD BE BASED ON THE PRIMARY CLINICAL RECORDS. [employer] provides no warranty or guarantee of the accuracy or completeness of information in this document.
== END 2025-03-16 14:35 | disposition home or self-care (01) ==
LOC: PST 14:34
PROVIDERS: PCP Nurse Practitioner Family; Visit Provider Surgery
DX: Z01.818 Encounter for other preprocedural examination (principal); Z12.11 Encounter for screening for malignant neoplasm of colon; Z80.0 Family history of malignant neoplasm of digestive organs

== ENCOUNTER 2025-03-24 08:54 | Day surgery (SDC) | payer BC, SELFPAY ==
--- NOTE | 2025-03-24 | OP_ITS ---
OPERATION DATE: 03/24/2025 PREOPERATIVE DIAGNOSIS: Colorectal screening, family history of colon cancer in patient?s mother. POSTOPERATIVE DIAGNOSIS: 8 mm sigmoid polyp and 4 mm distal sigmoid polyp. PROCEDURE: Colonoscopy to cecum with hot snare polypectomy x2 and placement of a clip on the sigmoid polypectomy site. SURGEON: Gunnar Couch M.D. ANESTHESIA: Monitored anesthesia care. ESTIMATED BLOOD LOSS: Less than 1 mL. INDICATIONS AND CONSENT: Patient is a 44-year-old male with a family history of colon cancer in patient?s mother, diagnosed in her 60s. Indications, risks, benefits, alternatives of proceeding with colonoscopy were explained extensively to the patient, including the risks of bleeding, colon perforation or anesthetic complications. All of his questions were answered. Informed consent was obtained. PROCEDURE: Patient brought to the operating room, placed in the left lateral decubitus position. Monitored anesthesia care was provided. Rectal exam was performed which showed no masses or blood. The scope was inserted into the anal canal. Under direct visualization was advanced. It was advanced to the cecum where cecal markings were clearly identified. There was noted to be a good prep. Upon withdrawal of the scope, mucosal surfaces were carefully examined. There were no mass lesions or inflammatory changes. No significant diverticulosis. Within the sigmoid colon, there was noted to be an 8 mm pedunculated polyp that was erythematous and irregular. This was removed with hot snare with good hemostasis. A clip was applied to the stalk, also for hemostasis. In the distal sigmoid, there was noted to be a 4 mm sessile polyp that was removed with hot snare with good hemostasis.. The scope was retroflexed. There were some prominent rectal veins. No significant hemorrhoidal disease. The scope was then withdrawn. Patient tolerated procedure well, was sent to recovery room in good condition. Follow up surveillance colonoscopy should be in 3-5 years, depending on the pathology results. CC: JELANI Terry
--- OUTSIDE RECORDS SUMMARY | 2025-03-24 08:57 | XMS_ITS | Patient Health Record ---
Author Organization [facility] [place] Address [address] [place] [address] Care Team Providers Care Data Processing Systems Project Planner Name Role Phone Jennifer Adams Primary Care Provider Allergies No Known Allergies Reason For Referral Reason colonoscopy screen, mother with colon cancer Diagnosis 1 Encounter for screen ing colonoscopy (Z12.11) Referral Organization [facility] Referring Provider First Name Jennifer Referring Provider Last Name Angie Referring Provider Speciality Family Med fabby Referred Provider Gunnar Couch Referred Provider Specialty General Surg gianna Referral Priority Routine Medications Medication SIG (Take, Route, Frequency, Duration) Notes Start Date End Date Status Losartan Potassium-HCTZ 100-25 MG TAKE 1 TABLET BY MOUTH DAILY Oral; Duration: 90 days ActiveDoxycycline Monohydrate 100 MG1 capsule Orally Once a day; Duration: 30 days5ActiveamLODIPine Besylate 10 MG1 tablet Orally Once a day; Duration: 90 daysActiveChantix Continuing Month Rg 1 MG1 tablet after eating Orally Twice a day; Duration: 30 day(s)5ActiveChantix Starting Month Rg 0.5 MG X 11 & 1 MG X 42 as directed Orally; Duration: 30 days Days 1 to 3: 0.5 mg once daily. Days 4 to 7: 0.5 mg twice daily. Maintenance (day 8 and later): 1 mg twice daily 5Active Social History Tobacco Use: Social History Observation Description Date Details (start date - stop date) Current Smoker 11/07/1995 - NA Tobacco Control (Standard) Question Answer Notes Tobacco use: Current smoker When did you start smoking?11/07/1995How often do you smoke cigarettes?Every day How many cigarettes a day do you smoke?[id number] (Standard) Question Answer Notes Did you have a drink containing alcohol in the p ast year? No Hrazsv9XgpraaubnbxtxhLotgcsve Problems Problem Type SNOMED Code ICD Code Onset Dates Problem Status W/U Status Risk Notes Problem Hypertension (61165216) Hypertension (I10 ) ActiveconfirmedProblemSmoker (41735216)Smoker (F17.200)ActiveconfirmedProblem Hidradenitis suppurativa (59677230)Hidradenitis suppurativa (L73.2)Active confirmed Vital Signs Blood pressure diastolic 102 mm Hg 02/08/2025 Sdrpso95 in02/08/2025lood pressure mvonihcb536 mm Hg02/08/20254034Drpsnv211.0 lbs 02/08/2025BMI22.52 kg/m202/08/2025 Encounters Encounter Location Date Provider Diagnosis [facility] [address] [place] [address] 02/08/2025 Jennifer Adams Hypertension I10 ; Wellness examination Z00.00 ; Encounter for screening colonoscopy Z12.11 ; Smoker F17.200 and Hidradenitis suppurativa L73.2 [facility] [address] [place] [address] 02/03/2025 Jennifer Adams [facility] [place] [address] 03/01/2025Jennifer Adams Assessments Encounter Date Diagnosis (ICD Code) Assessment Notes Treatment Notes Treatment Clinical Notes Section Notes 02/08/2025 Hypertension (ICD-10 - I10) has been out of losartan, HCTZ for 3 weeks start with 1/2 pill for 2 weeks than increase to whole pill, pt verbalizes understanding monitor bp, report if running higher 130/80 02/08/2025Wellness examination (ICD-10 - Z00.00)ROS done exam done02/08/2025 Encounter for screening colonoscopy (ICD-10 - Z12.11) referral to Dr Gerber mother had colon cancer in 60s 02/08/2025Smoker (ICD-10 - F17.200)02/08/2025Hidradenitis suppurativa (ICD-10 - L73.2)fu derm if needed, referral sheet given Plan Of Treatment Pending Test Test Name Order Date CMP (COMPLETE METABOLIC PANEL) 4 UA (URINALYSIS, COMPLETE) 11/21/2023 HEMOGLOBIN A1C (GLYCO) 02/08/2025 LIPID PANEL (CHOL/TRIG/HDL/LDL) 02/09/20 25 LIPID PANEL (CHOL/TRIG/HDL/LDL) 11/21/19 24 CBC WITH DIFF (EXP 02/2025) 11/21/2023 CBC AUTO DIFF 11/25/2023 CMP (COMP MET RYAN) w/eGFR CKD-EPI 2024 CBC WITH DIFF 02/08/2025 Insurance Providers Payer Name Payer Address Payer Phone Subscriber Number Group Number Insured Name Patient Relationship to Insured Coverage Start Date Coverage End Date [employer] PPO PLUS LOCAL PLAN [address] [place] [address] [id number] Michele Emery - patient is the insured Medical (General) History Medical History History ICD Code Hypertension I10 Surgical History Surgery Date(Month/Year) eye surgery at 1 y.o TonsillectomyHospitalization History Reason Date(Month/Year) Hypertension 11/29
--- OUTSIDE RECORDS SUMMARY | 2025-03-24 08:57 | XMS_ITS | Clinical Summary ---
Author Organization [facility] tem Address [id number] [address] [place] [address] Care Team Providers Care Wireline Field Operator Name Role Phone Unavailable Primary Care Provider Unavailabl e Social History Tobacco UseTypesPacks/DayYears UsedDateSmoking Tobacco: Never AssessedChildcare AnswerDate PmwdklgyKgcmxoebkEaxmyhf08/12/2019EmploymentAnswerDate Recorded SpllddatruJcckycu89/12/2019Sex and Gender InformationValueDate RecordedSex Assigned at BirthNot on fileLegal ThoRgoc9211/11/2014 11:38 AM EDTGender Identity Not on fileSexual OrientationNot on file Plan of Treatment Not on file Medical Devices Not on file
[2025-03-24 09:01] VITALS: BP 136/93; PULSE 93; TEMP 36.3; O2SAT 98; BMI 21.7
[2025-03-24 11:16] VITALS: BP 90/52; PULSE 68; TEMP 36.1; O2SAT 98
[2025-03-24 11:31] VITALS: BP 93/56; PULSE 63; O2SAT 97
[2025-03-24 11:45] VITALS: BP 128/68; PULSE 700; O2SAT 99
== END 2025-03-24 12:00 | disposition home or self-care (01) ==
LOC: SURGOUT 08:54
PROVIDERS: PCP Nurse Practitioner Family; Visit Provider Surgery
PROC: (CPT 811; principal; 2025-03-24 10:05)
DX: Z12.11 Encounter for screening for malignant neoplasm of colon (principal); Z80.0 Family history of malignant neoplasm of digestive organs; K63.5 Polyp of colon; D12.5 Benign neoplasm of sigmoid colon; I10 Essential (primary) hypertension; F17.210 Nicotine dependence, cigarettes, uncomplicated
CPT/HCPCS: 45385; 88305; J2003; J2371; J2704